=== PATIENT | male | born 1970 | race Caucasian/White ===

== ENCOUNTER 2016-10-11 11:54 | Observation (INO) | payer OTHER ==
[2016-10-11] MEDS ORDERED: ASPIRIN 81 MG CHEWABLE TAB PO ONE (11:59)
--- NOTE | 2016-10-11 12:02 | CPEKG ---
Heart Rate: 61 RR Interval: 984 P-R Interval: 192 QRSD Interval: 98 QT Interval: 420 QTC Interval: 423 P [place]: 49 QRS [place]: -50 T Wave [place]: 23 EKG Severity - ABNORMAL ECG - EKG Impression: SINUS RHYTHM EKG Impression: LEFT ANTERIOR FASCICULAR BLOCK Electronically Signed By: David Payne 11-Oct-2016 15:07:52
[2016-10-11 12:19] LABS: % IMMATURE GRANULYOCYTES 0.3 % (0.0-1.1); ABSOLUTE IMMATURE GRANULOCYTES 0.02 10^3/uL (0.00-0.10); ADD DIFF? NO; ADD MORPH? NO; ADD SCAN? NO; ATYPICAL LYMPHOCYTE FLAG 20 (0-99); FRAGMENT RBC FLAG 0 (0-99); HEMATOCRIT 46.7 % (40.0-51.0); HEMOGLOBIN 15.9 g/dL (13.7-17.5); LEFT SHIFT FLG 0 (0-99); LIPEMIA HEMOLYSIS FLAG 90 (0-99); MEAN CELL HEMOGLOBIN 29.4 pg (27.9-34.1); MEAN CELL VOLUME 86.3 fL (81.5-99.8); MEAN PLATELET VOLUME 9.7 fL (8.7-11.7); PLATELET CLUMPS FLAG 10 (0-99); PLATELET COUNT 304 10^3/uL (150-400); RED BLOOD CELL COUNT 5.41 10^6/uL (4.40-6.38)
[2016-10-11] MEDS: NITROGLYCERIN 0.4 MG BTL SL PRN ×3 (12:26→12:39)
[2016-10-11 12:33] LABS: ANION GAP 15 mEq/L (8-16); CALCIUM 9.1 mg/dL (8.5-10.4); CARBON DIOXIDE 23 mEq/l (22-31); CHLORIDE 102 mEq/L (97-110); CREATININE 0.9 mg/dL (0.7-1.3); GLOMERULAR FILTRATION RATE > 60; GLUCOSE 93 mg/dL (70-100); POTASSIUM 4.2 mEq/L (3.5-5.2); SODIUM 140 mEq/L (134-144)
[2016-10-11 12:44] LABS: TROPONIN I < 0.012 ng/mL (0-0.034)
--- NOTE | 2016-10-11 12:54 | CPEKG ---
Heart Rate: 59 RR Interval: 1017 P-R Interval: 188 QRSD Interval: 92 QT Interval: 420 QTC Interval: 416 P [place]: 48 QRS [place]: -53 T Wave [place]: 10 EKG Severity - ABNORMAL ECG - EKG Impression: SINUS RHYTHM EKG Impression: LEFT ANTERIOR FASCICULAR BLOCK Electronically Signed By: David Payne 11-Oct-2016 15:07:33
[2016-10-11] MEDS ORDERED: NITROGLYCERIN 2% 1 GM PACKET TP ONE (13:01)
--- NOTE | 2016-10-11 13:54 | EDPHY ---
H & P Stated Complaint: left ant CP with left arm numbness /tingling since 10 today Time Seen by Provider: 10/11/16 12:12 HPI/ROS: This pt. reports abrupt onset of severe L. sided chest pain while the patient was doing yd work with moderate exertion. He describes this as 10/10 severity initially sharp in achy that subsequently reduced to moderate discomfort associated with nausea and fatigue. He reports ongoing 3/10 discomfort upon arrival. He was brought in by his for his symptoms. He reports that the pain radiated to his left arm earlier that is not currently radiating to the arm. He also had slight paresthesias in left arm during that time. He has never had this discomfort before. He has not taken any medications except for 1 baby aspirin prior to arrival. ROS: Constitutional: No fevers. HEENT: No cold symptoms recently or other complaints Pulmonary: No pleuritic pain or cough. Cardiovascular: No heart palpitations, lower extremity swelling other complaints besides what is listed in HPI GI: Nausea but no vomiting. No belly pain. : No complaints Musculoskeletal: No acute injuries. Has chronic left mild shoulder pain from previous rotator cuff injury that does not feel change today. Integumentary: No skin rash or diaphoresis. Complete ROS is otherwise negative. Source: Patient Exam Limitations: No limitations - Medical/Surgical History PMH: Otherwise healthy Hx Asthma: No Hx Chronic Respiratory Disease: No Hx Diabetes: No Hx Cardiac Disease: No Hx Renal Disease: No Hx Cirrhosis: No Hx Alcoholism: No Hx HIV/AIDS: No Hx Splenectomy or Spleen Trauma: Yes Other PMH: Med hx-GERD. Surg-spleen laceration as teen,left rotator cuff - Family History Significant Family History: No pertinent family hx - Social History Smoking Status: Current some day smoker Alcohol Use: Occasionally Drug Use: Marijuana - Physical Exam Exam: General Appearance: Alert, no distress. Eyes: Pupils equal and round no pallor or injection. ENT, Mouth: Mucous membranes moist. Respiratory: There are no retractions, lungs are clear to auscultation. Cardiovascular: Regular rate and rhythm. No murmur gallop rub. No JVD. No peripheral edema. No chest wall tenderness. Gastrointestinal: Abdomen is soft and nontender, no masses, bowel sounds normal. Neurological: GCS 15 with no sensory motor deficits Skin: Warm and dry, no rashes. Musculoskeletal: Neck is supple nontender. Extremities are symmetrical, full range of motion. Psychiatric: Mood and affect normal DIFFERENTIAL DIAGNOSIS: After history and physical exam differential diagnosis was considered for MD, pneumothorax, pneumonia, angina, GERD with esophageal spasm, thoracic aortic aneurysm, aortic dissection Constitutional: Initial Vital Signs Temperature (C) 36.7 C 10/11/16 11:56 Heart Rate 63 10/11/16 11:56 Respiratory Rate 16 10/11/16 11:56 Blood Pressure 135/92 H 10/11/16 11:56 O2 Sat (%) 96 10/11/16 11:56 O2 Delivery Mode Room Air Allergies/Adverse Reactions: No Known Allergies Allergy (Verified 10/11/16 12:03) Home Medications: Medication Instructions Recorded VITAMIN D 10/11/16 Medical Decision Making - Diagnostics EKG Interpretation: 12 lead EKG performed shortly after arrival at 12:00 am reveals sinus rhythm at 61 Intervals reviewed, axis reviewed, ST segments: normal overall assessment sinus rhythm with left anterior fascicular block. No previous for comparison For complete read please refer to trace master for complete read 2nd EKG performed at 1252 p.m. indication pain relief with nitroglycerin rule out interval change Sinus rhythm at 59 Intervals unchanged [place] unchanged ST segments: New biphasic T-wave in AVF that is subtle otherwise normal cannot rule out subtle inferior change in AVF Please refer to trace [id number] for complete read Imaging Results: Imaging Impressions Chest X-Ray 10/11/16 12:52 Impression: Central bronchitis, otherwise negative chest. ED Course/Re-evaluation: IV, monitor, aspirin 1 supple nitroglycerin with pain from 3 to less than 1/10. Patient reports he feels significantly improved. Supple nitroglycerin is repeated Q 5 x 3 and placed 0.5 inch nitropaste. Patient remains comfortable after the nitroglycerin with less than 1/10 discomfort. A repeat EKG is performed with perhaps minimal change in AVF but no other significant findings. 1st troponin is negative I spoke with Gipm-las-jguwu practitioner with [facility] agrees with plan for admission to PCU for further evaluation. I held off on beta blockers for this patient because of his rate of 60 or less and normotensive status. Hold off on blood thinners given normal initial troponin. Patient here with risk factor of smoking with chest pain it sounds concerning for anginal pain-onset during exertion with history of smoking as risk factor. He warrants admission for rule out MD and further evaluation I spoke with Dr. Orlando-hospitalist accepts the patient for transfer - Data Points Laboratory Results: Laboratory Results 10/11/16 12:10 10/11/16 12:10 10/11/16 10/11/16 10/11/16 12:21 12:10 12:10 WBC 7.42 10^3/uL 10^3/uL (3.80-9.50) RBC 5.41 10^6/uL 10^6/uL (4.40-6.38) Hgb 15.9 g/dL g/dL (13.7-17.5) Hct 46.7 % % (40.0-51.0) MCV 86.3 fL fL (81.5-99.8) MCH 29.4 pg pg (27.9-34.1) MCHC 34.0 g/dL g/dL (32.4-36.7) RDW 13.0 % % (11.5-15.2) Plt Count 304 10^3/uL 10^3/uL (150-400) MPV 9.7 fL fL (8.7-11.7) Neut % (Auto) 69.7 % % (39.3-74.2) Lymph % (Auto) 21.8 % % (15.0-45.0) [place] % (Auto) 6.9 % % (4.5-13.0) Eos % (Auto) 1.2 % % (0.6-7.6) Baso % (Auto) 0.1 % L % (0.3-1.7) Nucleat RBC Rel Count 0.0 % % (0.0-0.2) Absolute Neuts (auto) 5.17 10^3/uL 10^3/uL (1.70-6.50) Absolute Lymphs (auto) 1.62 10^3/uL 10^3/uL (1.00-3.00) Absolute Monos (auto) 0.51 10^3/uL 10^3/uL (0.30-0.80) Absolute Eos (auto) 0.09 10^3/uL 10^3/uL (0.03-0.40) Absolute Basos (auto) 0.01 10^3/uL L 10^3/uL (0.02-0.10) Absolute Nucleated RBC 0.00 10^3/uL 10^3/uL (0-0.01) Immature Gran % 0.3 % % (0.0-1.1) Immature Gran # 0.02 10^3/uL 10^3/uL (0.00-0.10) D-Dimer < 0.27 ug/mLFEU ug/mLFEU (0.00-0.50) Sodium 140 mEq/L mEq/L (134-144) Potassium 4.2 mEq/L mEq/L (3.5-5.2) Chloride 102 mEq/L mEq/L (97-110) Carbon Dioxide 23 mEq/l mEq/l (22-31) Anion Gap 15 mEq/L mEq/L (8-16) BUN 13 mg/dL mg/dL (7-23) Creatinine 0.9 mg/dL mg/dL (0.7-1.3) Estimated GFR > 60 Glucose 93 mg/dL mg/dL (70-100) Calcium 9.1 mg/dL mg/dL (8.5-10.4) Troponin I < 0.012 ng/mL ng/mL (0-0.034) Medications Given: Discontinued Medications Aspirin (Aspirin) 324 mg PO EDNOW ONE Stop: 10/11/16 12:00 Last Admin: 10/11/16 12:05 Dose: 324 mg Nitroglycerin (Nitrostat) 0.4 mg SL Q5M PRN PRN Reason: Chest Pain Stop: 10/11/16 12:34 Last Admin: 10/11/16 12:39 Dose: 0.4 mg Nitroglycerin (Nitro-Bid 2%) 0.5 inch TP EDNOW ONE Stop: 10/11/16 13:02 Last Admin: 10/11/16 13:07 Dose: 0.5 inch Departure - Departure Disposition: [facility] Inpatient Acute Clinical Impression: Acute chest pain Condition: Good
[2016-10-11] MEDS ORDERED: OXYCODONE/APAP 5/325 TAB PO PRN (14:32)
[2016-10-11] MEDS ORDERED: ONDANSETRON DISINTEGRATING 4 MG TAB PO PRN (14:32)
[2016-10-11] MEDS ORDERED: ONDANSETRON 4 MG/2 ML VIAL IVP PRN (14:32)
[2016-10-11] MEDS ORDERED: ACETAMINOPHEN 325 MG TAB PO PRN (14:32)
--- NOTE | 2016-10-11 18:24 | GHP ---
[f rep st] HISTORY AND PHYSICAL DATE OF ADMISSION: 10/11/2016 CHIEF COMPLAINT: Chest pain. HISTORY OF PRESENT ILLNESS: The patient is a very nice 45-year-old man with no past medical history who comes in with chest pain. He said he was mowing his lawn this morning at home and was raking t he grass. He admits to using his arms in big, wide sweeping motion to trying get the grass up. Whmag houser doing this, he got a sharp pain on his left side of his chest suddenly at about 10:30. The pain was sharp and steady. After it faded, it was reproducible with palpation. He went to picker packer his d aughter from school and was feeling a little bit bad and more tired than usual at that time. He did not get any shortness of breath. No palpitations. His chest was feeling a little better but he st ill new it was there. He also felt more worn out than usual. He also had some left arm numbness, a nd at this point, decided to go to urgent care for further evaluation. After arriving, he had some minimal chest discomfort and was given 2 nitroglycerin and had relief of his symptoms. He denies any recent illnesses, fevers, chills, headache, vision, hearing or speech changes. He has had some trouble sleeping and has been under a lot of stress recently as they are trying to buy a h ouse and moving. He has also had some slight neck discomfort over the last couple of weeks, notable at work, and has felt slightly more tired than usual after work. REVIEW OF SYSTEMS: A 10-point review of systems was done, with pertinent positives noted in the HPI . PAST MEDICAL HISTORY: Negative. PAST SURGICAL HISTORY: Negative. FAMILY HISTORY: He believes his father was taking nitroglycerin but has no significant information about his cardiac history. SOCIAL HISTORY: He is . They have 3 children. 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 Generally during the week, he walks his kids to school every morning. He als o [employer] bikes and has never experienced any chest pain or discomfort while exercising before to y. He smokes about 4 cigarettes a day while at work and says he typically does not go through a pac k a week. He drinks alcohol 1 time a week and can drink anywhere from 1 tall boy to a 6-pack at selene t time. CURRENT MEDICATIONS: Include vitamin D 2000 units daily. ALLERGIES: No known drug allergies. PHYSICAL EXAMINATION: VITAL SIGNS: He has been afebrile. Heart rate 60, blood pressure 104/78, re spirations 14. He is 95% on room air. GENERAL: He is a very pleasant, healthy-appearing 45-year-o ld man in no distress. He is alert and oriented. His speech is clear and fluent. HEENT: Atraumat ic. Pupils equal. Extraocular movements intact. Sclerae anicteric. Mucous membranes moist. Orop harynx clear. NECK: Supple without lymphadenopathy. Thyroid is within normal limits. No carotid bruits noted. HEART: Regular rate and rhythm. Slightly distant but no murmurs, gallops, or rubs n oted. LUNGS: Clear bilaterally without wheeze, rhonchi, or rales. ABDOMEN: Soft, nontender, nond istended. Normal bowel sounds. EXTREMITIES: No clubbing, cyanosis, or edema. Pulses intact dista lly. MUSCULOSKELETAL: No joint effusions or deformities noted. NEUROLOGIC: His speech is fluent. He is alert and oriented and he moves all 4 extremities equally. SKIN: Intact, no rash. LABORATORY DATA: CBC and chemistries are all within normal limits. Initial D-dimer negative and in itial troponin negative. Electrocardiogram was done and shows a left anterior fascicular block without any obvious ischemia. Chest x-ray, personally reviewed and interpreted, shows nothing acute. ASSESSMENT AND PLAN: 1. A 45-year-old who presents with acute onset of left-sided chest pain with some radicular symptom s down his left arm which has since resolved. Risk factors include tobacco history and dyslipidemia with an elevated LDL of 142. Unknown family history. The plan will be to admit him for observatio n overnight. Will cycle his troponins. A stat echo showed no significant wall motion abnormalities . Will get an EKG in the a.m., and if his troponins remain negative and his EKG is unchanged, would consider doing a nuclear stress test. Certainly, if he has worsening ischemia or elevated troponin , would consider angiogram. 2. Vitamin D deficiency, currently on supplemental vitamin D followed by Dr. Hong as an outpatie nt. 3. DVT prophylaxis. Patient low risk. Will likely be here less than 24 hours and will encourage a mbulation while he is here. /[id number]/MODL
[2016-10-12 04:33] LABS: ANION GAP 10 mEq/L (8-16); CALCIUM 9.5 mg/dL (8.5-10.4); CARBON DIOXIDE 27 mEq/l (22-31); CHLORIDE 106 mEq/L (97-110); GLOMERULAR FILTRATION RATE > 60; GLUCOSE 95 mg/dL (70-100); POTASSIUM 4.6 mEq/L (3.5-5.2); SODIUM 143 mEq/L (134-144)
[2016-10-12 04:40] LABS: TROPONIN I < 0.012 ng/mL (0-0.034)
--- NOTE | 2016-10-12 07:11 | GCON ---
[f rep st] CONSULTATION CARDIOLOGY CONSULTATION INDICATION FOR CARDIOLOGY CONSULTATION: Chest pressure, abnormal electrocardiogram. HISTORY OF PRESENT ILLNESS: Mr. Flores is a 45-year-old male reporting no significant cardiovascular history, reporting over the last 3 weeks of more fatigue with occasional episode of pain in his right upper neck, that has been coming and going, usually lasting for a couple hours, and dissipating. Reporting today he was out doing yard work. While raking, he developed a sudden left anterior chest pressure/pain, reporting initially as a "snapping" sensation that began the linger. He does report it as initially 10/10, severe, that subsequently reduced to moderate discomfort. He reported within 30 minutes , he was picking his daughter up from school, and developed some nausea and diaphoresis. When arriving home, his and him decided to go to the [facility] Emergency Department for further evaluation. Upon arrival, he did report a 3/ 10 chest pressure. Initial electrocardiogram was done, showing sinus rhythm with left anterior fascicular block noted, inverted T waves in lead III. Subsequently, patient was given nitroglycerin, reporting no relief after the 1st dosage, but significant reduction of pain after the 2nd and 3rd doses. Upon arrival nitroglycerin paste was placed, and he reports upon my examination he is currently pain-free. He denies of any history of palpitations, orthopnea , PND, edema, lightheadedness, near-syncope, or syncopal events. Denies any symptoms suggestive of TIA or CVA. He does report over the last 3 weeks, as mentioned above, feeling more fatigued. He does work as a store warehouse associate, and has noted that he is also taking longer to recuperate from physical exertion. He denies any recent fevers, chills, night sweats. He is currently not on any medications. He has cardiac risk factors of male, current smoker less than a pack per week, and uncertain family history reporting father was using sublingual nitroglycerin around age 40-50. Father is currently alive, but uncertain if he has had any other cardiac procedures done. PAST MEDICAL HISTORY: The patient reports being admitted for hyperkalemia in his 20s thought due to dehydration, extreme exertion, but has had no other significant problems. PAST SURGICAL HISTORY: Denies. FAMILY HISTORY: As mentioned above. The patient reports father took nitroglycerin in his 40s and 50s, but patient is uncertain of his significant cardiac history. Father is currently alive at age 70. He also reports brother and mother with history of hypertension. SOCIAL HISTORY: The patient is , reports he has 3 children that are all alive and well. He is a store warehouse associate. He smokes currently, reporting about a pack a week for greater than 20 years. He reports occasional alcohol use, occasional marijuana use, no illicit drug use. ALLERGIES: The patient has no known drug allergies. MEDICATIONS AT HOME: Vitamin D3 at 2000 units p.o. REVIEW OF SYSTEMS: A 10-point review of systems done, all negative except as mentioned above. PHYSICAL EXAMINATION: GENERAL: Medium built, mildly overweight male. He is alert and oriented to person, place, time, and situation. Appears to be under no acute distress. CURRENT VITAL SIGNS: blood pressure of 104/78, heart rate 62 and regular, respirations 14, saturating 95% on room air, temperature 36.6 degree Celsius. HEENT: Head is normocephalic. Lips and tongue are pink and moist with no signs of cyanosis. Conjunctivae pink. NECK: Trachea is midline , +2 carotid pulses bilateral, no auscultated bruits, no jugular vein distention. RESPIRATORY: Lungs clear to auscultation, no rhonchi, rales or wheezes. No accessory muscle use, no intercostal muscle retraction noted. CARDIAC: Regular rate, regular rhythm, S1, S2. No S3, S4, gallops, rubs or murmurs noted. ABDOMEN: Soft, nontender, bowel sounds x4 quadrants. No organomegaly, no palpable masses. SKIN: [place], warm, dry. No cyanosis, no clubbing, no peripheral edema. VASCULAR: +2 carotids bilateral, +2 radials bilateral, +2 dorsal pedal and posterior tibial pulses bilateral. NEURO: Cranial nerves 2-12 grossly intact. LABORATORY STUDIES: WBC 7.42, hemoglobin 15.9, hematocrit 46.7, platelet count 304. D-dimer less than 0.27. Sodium 140, potassium 4.2, chloride 102, CO2 23, BUN 13, creatinine 0.9, glucose 93, calcium 9.1, troponin less than 0.012. STUDIES: Initial electrocardiogram as mentioned above. , Electrocardiogram repeated at 12:52 today shows sinus rhythm, left anterior fascicular block, inverted T waves in lead III. Chest x-ray showing no acute cardiopulmonary process. Preliminary echocardiogram showing normal LV wall motion, normal ejection fraction. ASSESSMENT AND PLAN: 1. Chest pressure: A 45-year-old male with history of smoking, questionable family history of coronary artery disease, reporting ongoing fatigue symptoms for the last 2 weeks, with episode of chest pressure, with associated nausea and diaphoresis, relieved with nitroglycerin in the emergency department. Echocardiogram showing normal left ventricular wall motion, with initial troponin and D-dimer negative. The patient has had aspirin therapy, currently is pain free, has nitroglycerin paste on his chest, will plan on cycling troponins. If they do elevate or patient's symptoms worsen, would consider patient to go to coronary catheterization lab for coronary angiogram for further evaluation of ischemia. If he remains pain-free and troponins do not elevate, will plan on him undergoing ETT MPI study in a.m. I will continue on aspirin therapy as mentioned above. Do not feel the patient is an appropriate candidate for full anticoagulation at this with heparin at this time. 2. Tobacco abuse: Patient reports he is a half a pack smoker for 20 years. We have discussed the importance of him quitting especially with his current chest pressure and pain. He verbalizes understanding. He has been referred to the [place] [facility]. Thank you for this consultation. We will be glad to follow along with you. /[id number]/MODL MTDD
[2016-10-12] MEDS ORDERED: ENOXAPARIN 40 MG/0.4 ML SYR SC SCH (09:00)
[2016-10-12] MEDS ORDERED: CHOLECALCIFEROL VIT D3 2,000 UNITS TAB/CAP PO SCH (09:00)
[2016-10-12] MEDS ORDERED: ASPIRIN EC 325 MG TAB PO SCH (09:00)
[2016-10-12] MEDS ORDERED: PNEUMOCOCCAL 0.5ML VACCINE VIAL IM ONE (09:53)
[2016-10-12 15:17] VITALS: BP 106/72; PULSE 73; RESP 18; TEMP 98.6; O2SAT 95
--- NOTE | 2016-10-13 03:09 | CPR ---
[f rep st] NONINVASIVE CARDIAC PROCEDURE REPORT PROCEDURE: Cardiology exercise treadmill and myocardial perfusion imaging study. INDICATION FOR PROCEDURE: Chest pain and abnormal electrocardiogram. DESCRIPTION OF PROCEDURE: Pre: After obtaining informed consent, patient was placed on a 12-lead e lectrocardiogram. Initial EKG shows sinus rhythm, left anterior fascicular block. The patient ayo es any chest pain or shortness of breath, or symptoms suggesting of ischemia. Initial blood pressur e 124/90. STRESS: The patient was placed on exercise treadmill following standard Russ protocol with the jm baumann findings: 1. Patient exercised for 10 minutes. 2. 10.9 METS. 3. Obtaining a heart rate of 152 BPM which was 87% of MPHR. 4. No ST shifts at peak exercise. suggesting of ischemia. 5. No symptoms of ischemia during stress. 6. The patient was noted to have premature ventricular contractions occasionally in rest, stress, a nd recovery. 7. No other malignant arrhythmias noted. 8. SpO2 greater than 90% throughout the testing. 9. BP variation at rest 124/90, peak 182/80. 10. Test was stopped to maximum effort. 11. Dorman treadmill score of 10, placing him at low cardiovascular risk. RECOVERY: Patient, during recovery phase, did have some mild nausea, but continued to deny any ches t pain or shortness of breath. Vital signs remained stable. Within 5 minutes of recovery, all symp toms subsided, and patient was taken to Nuclear Medicine for post-stress imaging. IMPRESSION: A 45-year-old male admitted yesterday for [facility] emergency department for chest pressure, which was relieved with nitroglycerin. He did, with chest pressure, have assoc iated symptoms of nausea and diaphoresis. Noted to have abnormal electrocardiogram, showing left an terior fascicular block, exercised 10 minutes. No signs of ischemia at peak exercise, Dorman treadmil l score of 10, placing him at low cardiovascular risk. Myocardial perfusion imaging is pending. /[id number]/MODL
--- NOTE | 2016-10-13 07:15 | GDS ---
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 ADMISSION DIAGNOSIS: 1. Acute chest pressure. 2. Left anterior fascicular block. 3. Hyperlipidemia. 4. Tobacco abuse. 5. Vitamin D deficiency. DISCHARGE DIAGNOSIS: 1. Chest pressure, noncardiac source. 2. Left anterior fascicular block. 3. Hyperlipidemia. 4. Tobacco abuse. 5. Vitamin D deficiency. PROCEDURES DONE DURING HOSPITALIZATION: 1. Electrocardiogram. 2. Chest x-ray. 3. Echocardiogram. 4. Exercise treadmill with myocardial perfusion imaging. BRIEF HISTORY: Please see H and P. Mr. Flores is a 45-year-old male who reported a sudden onset of left anterior chest pressure while exerting himself yesterday, soon after developing radiation t o the left arm, nausea and diaphoresis. Arriving to the emergency department at the [facility], noted to have abnormal electrocardiogram showing sinus rhythm with left anterior fascicul ar block, was given sublingual nitroglycerin, and reported symptoms soon relieved. Negative troponi n and D-dimer on admission. It was decided to further risk analysis and have him be sent over to [facility] for further observation. HOSPITAL COURSE: Patient admitted to the PCU from [facility] directly, there on arriv al he remain pain-free. Urgent echocardiogram was done at the time of his admission showing normal LV systolic function, EF 67%, no wall motion abnormalities, Doppler evidence of diastolic dysfunctio n, normal RV size and function, LA within normal limits, normal appearing valve structure, trace TR, RVSP within normal limits. At that time, he was kept overnight on the PCU unit on telemetry, havin g no arrhythmias, no further episodes of chest pressure or pain, and undergoing serial troponin leve ls, which have been all negative. Today, he did undergo exercise treadmill MPI study, both studies showing no signs of ischemia or infarction. PHYSICAL EXAMINATION: GENERAL: Done today, medium build, mildly overweight male. He is alert and oriented to person, place, time, and situation. Appears to be under no acute distress. VITAL SIGNS : Blood pressure 106/73, heart rate 73, sinus rhythm on the monitor, respirations 18, saturating 95 % on room air. Temperature 37 degrees Celsius. HEENT: Head is normocephalic. Lips and tongue are pink and moist with no signs of cyanosis. Conjunctivae pink. NECK: Trachea is midline, +2 caroti d pulses bilateral. No auscultated bruits, no jugular vein distention. RESPIRATORY: Lungs clear t o auscultation, no rhonchi, rales or wheezes. No accessory muscle use, no intercostal muscle retrac tion noted. CARDIAC: Regular rate, regular rhythm, S1, S2, no S3, S4, gallops, rubs or murmurs not ed. ABDOMEN: Soft, nontender, bowel sounds x4 quadrants, no organomegaly, no palpable masses. SKI N: [place], warm, dry, no cyanosis, no clubbing, no peripheral edema. VASCULAR: +2 carotids bilatera l, +2 radials bilateral, +1 dorsal, pedal and posterior tibial pulses bilateral. Cranial nerves 2 t hrough 10 grossly intact. LABORATORY STUDIES: Drawn on day of admission showed WBC of 7.42, hemoglobin of 15.9, hematocrit of 46.7, platelet count of 304, D-dimer was less than 0.27, troponin was less than 0.012. Patient has had 4 troponin levels drawn all with less than 0.012. Today, chemistry showed sodium 143, potassiu m 4.6, chloride 106, CO2 of 27, BUN 16, creatinine 1.0, glucose 95, calcium 9.5. STUDIES: Electrocardiogram as mentioned above. Chest x-ray on admission showed central bronchitis, otherwise negative chest, no acute cardiopulmonary process. Echocardiogram as mentioned above, exe rcise treadmill showed no signs of ischemia at peak exercise, Dorman treadmill score of 10 placing him at low cardiovascular risk. Mild pericardial perfusion imaging showed no evidence of myocardial is chemia, LVEF calculated at 71% with no wall motion abnormalities. DISCHARGE DISPOSITION: Patient will be discharged home in stable condition. He is under no activit y restrictions, but he has been encouraged to take it easy for the next week. DISCHARGE MEDICATIONS: Please see discharge med reconciliation sheet. DISCHARGE INSTRUCTIONS: At the time of discharge, all testing went over with the patient and his wi fe, no significant cardiac source identified for his sudden acute chest pressure, he has also had a negative D-dimer. Patient has had no further episodes of chest pressure since admission. He has be en encouraged to follow up with his primary care provider in the next 10 days for further evaluation . We have discussed also his tobacco abuse, he has been referred to the [place] [facility]. Also r eviewing his fasting lipid panel from September of this year, he was noted to have a total cholesterol of 204, HDL of 46, LDL of 146, his 10 year ASCVD risk score is 6.5%, with recommendations of moderate t o intense statin therapy, but before initiating therapy, patient would like to try to modify his t and tobacco use, recommend retesting in 3-6 months after lifestyle modifications, if LDL remains e levated, would consider starting him on statin therapy with goal of getting LDL less, down to 100. The patient has been told that if any problems or concerns, he can follow up with Cardiology, myself . At the time of discharge, patient and his family all questions have been answered, they have been told that if any problems or concerns, they may call [facility], or return to the hospital. Total time spent on discharge, greater than 30 minutes. Copy requested to: Dr. Felipe Joyner #: [id number]
== END 2016-10-12 16:50 | disposition home or self-care (01) ==
LOC: CED 11:54 → INTOOBSV 13:26 → CEDHOLD 13:26 → F2W 16:10
PROVIDERS: ADMIT Hospitalist; ATTEND Hospitalist
DX: I44.4 Left anterior fascicular block (principal); E78.5 Hyperlipidemia, unspecified; Z72.0 Tobacco use; E55.9 Vitamin D deficiency, unspecified; Z23 Encounter for immunization
CPT/HCPCS: 71020; 78452; 90471; 93005; 93017; 93306; A9500; G0378; 80048-PO; 84484-PO; 85025-PO; 85378-PO; G0009; J1650